=== PATIENT | female | born 2000 | race Caucasian/White ===

== ENCOUNTER 2020-03-31 10:59 | Emergency (ER) | payer OTHER ==
[~2020-03-31] VITALS: Ht 167.6 cm; Wt 59.0 kg
[2020-03-31 11:03] VITALS: Ht 167.6 cm; Wt 59.0 kg
[2020-03-31 12:42] VITALS: BP 122/81
== END 2020-03-31 12:42 | disposition home or self-care (01) ==
LOC: ED 10:59
DX: F12.188 Cannabis abuse with other cannabis-induced disorder (principal)
CPT/HCPCS: J1630